=== PATIENT | female | born 1940 | race Caucasian/White ===

== ENCOUNTER 2021-09-11 12:17 | Observation (INO) ==
--- NOTE | 2021-09-11 12:30 | Emergency Department Note ---
History of Present Illness General Chief complaint: Chest Pain Stated complaint: CHEST PAIN Time Seen by Provider: 09/11/21 12:18 History of Present Illness 81-year-old female presents emergency department via EMS for reportedly was at a doctor's office in [place] for urinary tract infection symptoms. Patient was found to have an increased heart rate and was sent by EMS to the hospital for further evaluation. Patient states that she has had intermittent chest pain however does not have any current chest pain she states that she has had an increased heart rate in the past. She presented to their office today due to urinary symptoms of urgency and frequency. She was able to drink water there and was unfortunately unable to provide them a sample prior to them calling EMS due to her heart rate being elevated. She has no current chest pain no shortness of breath no abdominal pain no nausea no vomiting no fever Home Medications Medication Instructions Recorded Confirmed Type amitriptyline 100 mg tablet 200 mg PO DAILY tab 09/07/21 09/11/21 History atorvastatin 40 mg tablet 40 mg PO DAILY 09/07/21 09/11/21 History lisinopril 20 mg tablet 20 mg PO DAILY 09/07/21 09/11/21 History multivitamin (Multiple Vitamins) 1 tab PO DAILY 09/07/21 09/11/21 History oxycodone-acetaminophen 10 mg-325 1 tab PO Q8H PRN 09/07/21 09/11/21 History mg tablet (Percocet) Allergies Allergy/AdvReac Type Severity Reaction Status Date / Time gabapentin AdvReac Unknown Verified 09/11/21 14:33 Past Med/Surg History Medical History (Updated 09/11/21 @ 14:56 by Uzma Malcolm PA-C) Arthritis Dyslipidemia Fibromyalgia Hypertension Ischemic colitis Migraine-cluster headache syndrome Surgical History H/O rectocele repair History of back surgery History of intestinal surgery ischemic bowel surgery, denies hx colostomy S/P hysterectomy Status post knee replacement right Family History Denies family history of Ovarian cancer Breast cancer Colorectal cancer Uterine cancer Social History Smoking Status: Never smoker Hx Alcohol Use: Yes Hx Substance Use: No marital status: Current Living Situation: Family Review of Systems A total of 10 systems reviewed and were otherwise negative Constitutional: no fever Respiratory: no dyspnea Cardiovascular: + chest pain Gastrointestinal: no vomiting Genitourinary (Female): + dysuria, + urinary frequency and + urinary hesitancy Physical Exam Vital Signs Vital Signs - 24 hr 09/11/21 11:54 09/11/21 12:20 09/11/21 12:46 Pulse Rate 147 H Pulse Rate [Apical] Respiratory Rate 20 Respiratory Effort / Characteristics Respiratory Depth Respiratory Pattern Blood Pressure [Right Arm] Blood Pressure Mean [Right Arm] Blood Pressure Position [Right Arm] Pulse Oximetry Oxygen Delivery Method Nasal Cannula Room Air Oxygen Flow Rate 2 98 Sepsis Recent Fever Within 48 Hours No Sepsis New/Unexplained Change in Mental Status No Sepsis Action Taken by Nursing No Action Required 09/11/21 13:17 09/11/21 13:30 Pulse Rate Pulse Rate [Apical] 146 H 73 Respiratory Rate 15 18 Respiratory Effort / Characteristics Non-Labored Spontaneous Non-Labored Spontaneous Respiratory Depth Normal Normal Respiratory Pattern Regular Regular Blood Pressure [Right Arm] 138/111 H 124/77 Blood Pressure Mean [Right Arm] 120 92 Blood Pressure Position [Right Arm] Lying Lying Pulse Oximetry 95 95 Oxygen Delivery Method Room Air Room Air Oxygen Flow Rate Sepsis Recent Fever Within 48 Hours Sepsis New/Unexplained Change in Mental Status Sepsis Action Taken by Nursing VITAL SIGNS - Vital signs and nursing notes were reviewed. GENERAL -81-year-old female appearing her stated age who is in no acute distress . Communicates well with provider and answers questions appropriately. SKIN - Without rashes. HEAD - NC/AT. EYES - PERRL with EOMI bilaterally. Sclera anicteric. Palpebral conjunctiva pink and moist with no injection noted. EARS - No deformities of external structures noted on gross examination bila terally. NOSE - Midline and without cyanosis. No epistaxis or purulent drainage noted. Septum midline without deviation or septal hematoma noted. MOUTH/OROPHARYNX - Without perioral cyanosis. noted. NECK - Neck with FROM. Supple to palpation. No nuchal rigidity. LUNGS - Chest wall symmetric without accessory muscle use, intercostals retractions, or central cyanosis. Normal vesicular breath sounds CTA B/L. No wheezes, rales, or rhonchi appreciated. CARDIAC -tachycardic no murmur, rubs, or gallops appreciated. ABDOMEN - Abdominal contour flat without pulsations or visible masses. BS normoactive all four quadrants. No tenderness, palpable masses, hepatosplenomegaly, or ascites noted. EXTREMITIES - No clubbing or peripheral cyanosis. +5/5 strength noted in UE/LE bilaterally. NEUROLOGIC - Cranial nerves II through XII grossly intact. Sensory intact to light touch throughout. Patellar reflexes +2/4. PSYCH - A&Ox3 and cooperates fully with examiner. Pt is very pleasant and interacts well with examiner. Course Reevaluation(s) Reevaluation #1: Patient was resting in no distress was given 1 dose of IV Cardizem, patient remained in sinus rhythm, urine is pending at the time of disposition, the case was discussed with hospitalist program for admission 143 Administered Medications Discontinued Medications Diltiazem HCl (Diltiazem Hcl 5 Mg/Ml 5 Ml Vial) 20 mg IV NOW STA Stop: 09/11/21 12:58 Last Admin: 09/11/21 13:15 Dose: 20 mg Documented by: [id number] Cosigned by: [id number] Critical Care Time Critical Care Time: Yes Total Critical Care Time: 35 Critical care time is 35 minutes, patient had a cardiac dysrhythmia that required IV antiarrhythmic and reevaluation. Patient remained in stable condition patient had the possibility of a cardiovascular collapse, patient required multiple reevaluations, and review of records, discussion with hospitalist Medical Decision Making Medical Records Attestation: I reviewed the patient's medical records. Home Medications Current Medication List: was personally reviewed by me Laboratory Data Attestation: I reviewed the patient's lab results. Result diagrams: 09/11/21 12:40 09/11/21 14:22 Lab Results 09/11/21 09/11/21 09/11/21 Range/Units 12:40 12:40 12:40 WBC 8.63 (4.8-10.8) K/uL RBC 3.67 L (4.2-5.4) M/uL Hgb 11.4 L (12.0-16.0) g/dL Hct 36.2 L (37-47) % MCV 98.6 (80-100) fL MCH 31.1 (25-34) pg MCHC 31.5 L (32-36) g/dL RDW Std Deviation 54.9 H (36.4-46.3) fL RDW Coeff of Jonah 15.1 H (11.5-14.5) % Plt Count 254 (130-400) K/uL MPV 11.1 H (7.4-10.4) fL Immature Gran % (Auto) 0.2 % Neut % (Auto) 68.8 % Lymph % (Auto) 15.5 % [place] % (Auto) 14.5 % Eos % (Auto) 0.9 % Baso % (Auto) 0.1 % Neut # (Auto) 5.93 (1.4-6.5) K/uL Lymph # (Auto) 1.34 (1.2-3.4) K/uL [place] # (Auto) 1.25 H (0.11-0.59) K/uL Eos # (Auto) 0.08 (0-0.5) K/uL Baso # (Auto) 0.01 (0-0.2) K/uL Immature Gran # (Auto) 0.02 (0.00-0.02) K/uL PT 10.5 (9.0-12.0) Seconds INR 1.0 (0.9-1.1) APTT 28.1 (21.0-31.0) Seconds PTT Ratio 1.1 Sodium 137 (136-145) mmol/L Potassium (3.5-5.1) mmol/L Chloride 106 (98-107) mmol/L Carbon Dioxide 27 (21-32) mmol/L Anion Gap 4.0 (3-11) BUN 16 (7-18) mg/dl Creatinine 0.83 (0.6-1.2) mg/dl Est Cr Clr Drug Dosing Not Reportable Est GFR ( Amer) 76.1 ml/min Est GFR (Non-Af Amer) 65.7 ml/min BUN/Creatinine Ratio 19.8 (10-20) Glucose 93 (70-99) mg/dl Calcium 9.1 (8.5-10.1) mg/dl Total Bilirubin 0.6 (0.2-1) mg/dl AST (15-37) U/L ALT 69 (12-78) Alkaline Phosphatase 94 (45-117) U/L Troponin I < 0.015 (0-0.045) ng/ml Total Protein 7.0 (6.4-8.2) gm/dl Albumin 3.0 L (3.4-5.0) gm/dl Globulin 4.0 (2.5-4.0) gm/dl Albumin/Globulin Ratio 0.8 L (0.9-2) 09/11/21 09/11/21 Range/Units 13:44 14:22 WBC (4.8-10.8) K/uL RBC (4.2-5.4) M/uL Hgb (12.0-16.0) g/dL Hct (37-47) % MCV (80-100) fL MCH (25-34) pg MCHC (32-36) g/dL RDW Std Deviation (36.4-46.3) fL RDW Coeff of Jonah (11.5-14.5) % Plt Count (130-400) K/uL MPV (7.4-10.4) fL Immature Gran % (Auto) % Neut % (Auto) % Lymph % (Auto) % [place] % (Auto) % Eos % (Auto) % Baso % (Auto) % Neut # (Auto) (1.4-6.5) K/uL Lymph # (Auto) (1.2-3.4) K/uL [place] # (Auto) (0.11-0.59) K/uL Eos # (Auto) (0-0.5) K/uL Baso # (Auto) (0-0.2) K/uL Immature Gran # (Auto) (0.00-0.02) K/uL PT (9.0-12.0) Seconds INR (0.9-1.1) APTT (21.0-31.0) Seconds PTT Ratio Sodium (136-145) mmol/L Potassium Cancelled 4.4 (3.5-5.1) mmol/L Chloride (98-107) mmol/L Carbon Dioxide (21-32) mmol/L Anion Gap (3-11) BUN (7-18) mg/dl Creatinine (0.6-1.2) mg/dl Est Cr Clr Drug Dosing Est GFR ( Amer) ml/min Est GFR (Non-Af Amer) ml/min BUN/Creatinine Ratio (10-20) Glucose (70-99) mg/dl Calcium (8.5-10.1) mg/dl Total Bilirubin (0.2-1) mg/dl AST Cancelled 53 H (15-37) U/L ALT (12-78) Alkaline Phosphatase (45-117) U/L Troponin I (0-0.045) ng/ml Total Protein (6.4-8.2) gm/dl Albumin (3.4-5.0) gm/dl Globulin (2.5-4.0) gm/dl Albumin/Globulin Ratio (0.9-2) Imaging Data Radiologist's Impression: Chest X-Ray 09/11/21 12:20 XR chest 1V portable HISTORY: 81 years-old Female Chest Pain . Acute atypical chest pain COMPARISON: None TECHNIQUE: Portable AP view of the chest FINDINGS: The cardiac silhouette is mildly enlarged. Trace pleural effusions. No pneumothorax, or overt pulmonary edema. Mild bibasilar densities. Degenerative changes of the shoulders and spine. Cholecystectomy. IMPRESSION: 1. Cardiomegaly without pulmonary edema. 2. Trace pleural effusions with mild bibasilar densities suggestive of atelectasis. ACT 112: Negative or not required by law. The above report was generated using voice recognition software. It may contain grammatical, syntax or spelling errors. Electronically signed by: Yung Pina M.D. 09/11/2021 1:07 PM ECG Data Attestation: I personally reviewed and interpreted this ECG as follows: Prescription Drug Monitoring Prescription Drug Findings: EKG interpreted by me, SVT versus rapid atrial fibrillation rate of [address] segment elevation or depression normal axis, no prior EKG available to me in MUSE EKG #2 after administration of 20 of IV Cardizem is interpreted by me as sinus rhythm rate of 75 PACs age-indeterminate inferior and age-indeterminate anterior MIs with poor R wave progression the precordium no obvious ST segment elevation and normal axis MDM Narrative Medical decision making differential diagnosis includes palpitations sinus tachycardia, rapid atrial fibrillation, sepsis, urinary tract infection, dehydration Impression & Plan Chest pain, SVT (supraventricular tachycardia) Discharge Plan Visit Data Chief Complaint: Chest Pain Stated Complaint: CHEST PAIN ED Provider: Raghu Villalba Discharge Problem: Chest pain, SVT (supraventricular tachycardia) Patient Disposition: Being Evaluated by Hospitalist Forms Stand Alone Forms: [facility] WO Funding Prescriptions Prescriptions: No Action lisinopril 20 mg tablet 20 mg PO DAILY RF: 0 atorvastatin 40 mg tablet 40 mg PO DAILY RF: 0 oxycodone-acetaminophen [Percocet] 10-325 mg tablet 1 tab PO Q8H PRN (Reason: Pain) RF: 0 multivitamin [Multiple Vitamins] Tablet 1 tab PO DAILY RF: 0 amitriptyline 100 mg tablet 200 mg PO DAILY RF: 0 Referrals Referrals: Laurence Root CRNP [Primary Care Provider] - Discharge Problem: Chest pain Qualifiers: Chest pain type: precordial pain Qualified Code(s): R07.2 - Precordial pain
[2021-09-11 12:54] LABS: Basophils # (auto) 0.01 K/uL (0-0.2); Basophils % (auto) 0.1 %; Eosinophils # (auto) 0.08 K/uL (0-0.5); Eosinophils % (auto) 0.9 %; Hematocrit (blood only) 36.2 % (37-47); Hemoglobin 11.4 g/dL (12.0-16.0); Immature Granulocytes # (auto) 0.02 K/uL (0.00-0.02); Immature Granulocytes % (auto) 0.2 %; Lymphocytes # (auto) 1.34 K/uL (1.2-3.4); Lymphocytes % (auto) 15.5 %; Mean Corpuscular Hemoglobin 31.1 pg (25-34); Mean Corpuscular Hgb Conc 31.5 g/dL (32-36); Mean Corpuscular Volume 98.6 fL (80-100); Mean Platelet Volume 11.1 fL (7.4-10.4); Monocytes # (auto) 1.25 K/uL (0.11-0.59); Monocytes % (auto) 14.5 %; Neutrophils # (auto) 5.93 K/uL (1.4-6.5); Neutrophils % (auto) 68.8 %; Platelet Count 254 K/uL (130-400); RDW Coefficient of Variation 15.1 % (11.5-14.5); RDW Standard Deviation 54.9 fL (36.4-46.3); Red Blood Count 3.67 M/uL (4.2-5.4); White Blood Count 8.63 K/uL (4.8-10.8)
[2021-09-11] MEDS ORDERED: dilTIAZem HCl 5 MG/ML 5 ML VIAL IV STA (12:57)
--- NOTE | 2021-09-11 13:08 | XRay Report ---
XR chest 1V portable HISTORY: 81 years-old Female Chest Pain . Acute atypical chest pain COMPARISON: None TECHNIQUE: Portable AP view of the chest FINDINGS: The cardiac silhouette is mildly enlarged. Trace pleural effusions. No pneumothorax, or overt pulmona ry edema. Mild bibasilar densities. Degenerative changes of the shoulders and spine. Cholecystectomy. IMPRESSION: 1. Cardiomegaly without pulmonary edema. 2. Trace pleural effusions with mild bibasilar densities suggestive of atelectasis. ACT 112: Negative or not required by law. The above report was generated using voice recognition software. It may contain grammatical, syntax o r spelling errors. Electronically signed by: Yung Pina M.D. 09/11/2021 1:07 PM
[2021-09-11 13:11] LABS: Partial Thromboplastin Ratio 1.1; Partial Thromboplastin Time 28.1 Seconds (21.0-31.0); Prothrombin Time 10.5 Seconds (9.0-12.0)
[2021-09-11 13:20] LABS: Alanine Aminotransferase 69 (12-78); BUN Creatinine Ratio 19.8 (10-20); Blood Urea Nitrogen 16 mg/dl (7-18); Calcium 9.1 mg/dl (8.5-10.1); Carbon Dioxide 27 mmol/L (21-32); Chloride 106 mmol/L (98-107); Est GFR (African American) 76.1 ml/min; Est GFR (Non-African American) 65.7 ml/min; Glucose 93 mg/dl (70-99); Sodium 137 mmol/L (136-145)
[2021-09-11 13:23] LABS: Albumin Globulin Ratio 0.8 (0.9-2); Alkaline Phosphatase 94 U/L (45-117); Bilirubin,Total 0.6 mg/dl (0.2-1); Troponin I < 0.015 ng/ml (0-0.045)
[2021-09-11 14:42] LABS: Potassium 4.4 mmol/L (3.5-5.1)
--- NOTE | 2021-09-11 14:51 | History & Physical Report ---
Date of Service September 11, 2021 Assessment & Plan (1) Chest pain: Plan: - Admit to tele for observation for r/o - Trend cardiac biomarkers, initial set was negative - EKG reviewed as above - shows svt with hr in 150s, now back in NSR after 1 dose IV cardizem given in the ER - chest pain free now - Check 2 D echo - If negative enzymes can consider a stress test tomorrow morning. - PT/OT consulted - Consult cardiology (2) SVT (supraventricular tachycardia): Plan: -EKG reviewed, showing heart rate in the one fifties upon arrival to the ER -Likely has been ongoing since Friday when the patient describes palpitation, flutter lightheadedness and dizziness as well as shortness of breath with exertion -Previously had seen a oiler bander in [place], however due to moving here she has not followed up with them since - consult cards - Other management as above (3) Urinary incontinence in female: Plan: - Hx of such - Consider urology consult - will need set up upon discharge (4) Hypertension: Plan: - BP currently stable, continue lisinopril 20 mg daily (5) Dyslipidemia: Plan: - Cont atorvastatin (6) Fibromyalgia: Plan: - Continue pain meds (7) Migraine-cluster headache syndrome: Plan: - Continue amitriptyline HS for migraine noel hx DVT ppx: - teds, scds CODE: Full code Dispo: From home, likely to remain in the hospital x 1-2 days History of Present Illness Chief Complaint: Chest pain, tachycardia Primary Care Provider: EVIE Hawthorne This is an 81 yo F with PMhx of HTN, HLD, ischemic colitis, migraine who presents to from PCP office after being found to have HR in the 150s in the office. She presented there to PCP because of urinary complaints however, not chest complaints. While she was there she developed some chest pain and thus was referred to the ER. Patient has recently moved from [facility] to this area with her . Patient states that her chest discomfort has been going on since Friday night. Her reports that due to her stubbornness she did not present earlier to the ER. Pt admits to palpitations and flutter and at times lightheadedness and dizziness over past 48 hrs. She also admits to being short of breath with minimal activities. Typically is a very active individual. Friday night, placed her on 2 L oxygen which made her feel minimally improved. Patient cannot confirm why she has oxygen at home. Currently she denies any chest pain. Patient ambulates with out any assistive devices however reports she has been told she has needed them in the past. She previously followed with oiler bander in [place] however denies any other past medical history other than high blood pressure and cholesterol for cardiac reasons. She is not on any anticoagulation. She also notes that due to having fibromyalgia and multiple areas of osteoarthritis she takes Percocet 4 times daily. Allergies Allergy/AdvReac Type Severity Reaction Status Date / Time gabapentin AdvReac Unknown Verified 09/11/21 14:33 Home Medications Medication Instructions Recorded Confirmed Type amitriptyline 100 mg tablet 200 mg PO DAILY tab 09/07/21 09/11/21 History atorvastatin 40 mg tablet 40 mg PO DAILY 09/07/21 09/11/21 History lisinopril 20 mg tablet 20 mg PO DAILY 09/07/21 09/11/21 History multivitamin (Multiple Vitamins) 1 tab PO DAILY 09/07/21 09/11/21 History oxycodone-acetaminophen 10 mg-325 1 tab PO Q8H PRN 09/07/21 09/11/21 History mg tablet (Percocet) Past Med/Surg History Medical History (Updated 09/11/21 @ 16:52 by Uzma Malcolm PA-C) Arthritis Dyslipidemia Fibromyalgia Hypertension Ischemic colitis Migraine-cluster headache syndrome Surgical History H/O rectocele repair History of back surgery History of intestinal surgery ischemic bowel surgery, denies hx colostomy S/P hysterectomy Status post knee replacement right Family History Denies family history of Ovarian cancer Breast cancer Colorectal cancer Uterine cancer Social History Smoking Status: Never smoker Hx Alcohol Use: Yes Hx Substance Use: No marital status: Current Living Situation: Family Review of Systems Review of Systems: Constitutional: No fever, sweats or chills Eyes: No diplopia, no worsening or blurred vision ENT: normal hearing, no trouble swallowing Respiratory: No cough, sputum, dyspnea at rest, + GARCIA Cardiovascular: As per HPI, currently no chest pain, tightness or palpitations Abdomen: No pain, nausea, vomiting, diarrhea or constipation Musculoskeletal: No joint pain, calf pain, swelling Neurologic: No weakness, numbness/tingling, + chronic balance problems, does not use assistive device Psychiatric: No anxiety or depression Skin: No rash or itch Physical Exam Physical Exam: General: awake, alert, no apparent distress Head: Normocephalic, atraumatic ENT: PERRL, EOMI, no pharyngeal exudate, mucous membranes moist Chest: Clear to auscultation, on room air, no adventitious breath sounds Cardiac: Regular rate and rhythm, few PVCs, no murmur, no JVD, normal peripheral pulses, good capillary refill Abdominal: NABS x 4 quadrants, soft, nondistended, nontender to palpation, no rebound or guarding Extremities: Normal inspection, no peripheral edema or erythema, calfs nontender to palpation Psych: Normal mood and affect Neuro: AAO x 3, strength intact bilaterally and rated 5/5, no motor deficits, speech is clear, no peripheral sensory deficits Results & Data Results & Data ([facility]) Vital Signs (Past 12 Hours) Vital Signs Pulse Pulse Resp BP Pulse Ox 09/11/21 13:30 73 18 124/77 95 09/11/21 13:17 146 H 15 138/111 H 95 09/11/21 12:20 147 H 20 Laboratory Results 09/11/21 09/11/21 09/11/21 14:22 13:44 12:40 WBC RBC Hgb Hct MCV MCH MCHC RDW Std Deviation RDW Coeff of Jonah Plt Count MPV Immature Gran % (Auto) Neut % (Auto) Lymph % (Auto) [place] % (Auto) Eos % (Auto) Baso % (Auto) Neut # (Auto) Lymph # (Auto) [place] # (Auto) Eos # (Auto) Baso # (Auto) Immature Gran # (Auto) PT INR APTT PTT Ratio Sodium 137 Potassium 4.4 Cancelled Chloride 106 Carbon Dioxide 27 Anion Gap 4.0 BUN 16 Creatinine 0.83 Est Cr Clr Drug Dosing Not Reportable Est GFR ( Amer) 76.1 Est GFR (Non-Af Amer) 65.7 BUN/Creatinine Ratio 19.8 Glucose 93 Calcium 9.1 Total Bilirubin 0.6 AST 53 H Cancelled ALT 69 Alkaline Phosphatase 94 Troponin I < 0.015 Total Protein 7.0 Albumin 3.0 L Globulin 4.0 Albumin/Globulin Ratio 0.8 L 09/11/21 09/11/21 12:40 12:40 WBC 8.63 RBC 3.67 L Hgb 11.4 L Hct 36.2 L MCV 98.6 MCH 31.1 MCHC 31.5 L RDW Std Deviation 54.9 H RDW Coeff of Jonah 15.1 H Plt Count 254 MPV 11.1 H Immature Gran % (Auto) 0.2 Neut % (Auto) 68.8 Lymph % (Auto) 15.5 [place] % (Auto) 14.5 Eos % (Auto) 0.9 Baso % (Auto) 0.1 Neut # (Auto) 5.93 Lymph # (Auto) 1.34 [place] # (Auto) 1.25 H Eos # (Auto) 0.08 Baso # (Auto) 0.01 Immature Gran # (Auto) 0.02 PT 10.5 INR 1.0 APTT 28.1 PTT Ratio 1.1 Sodium Potassium Chloride Carbon Dioxide Anion Gap BUN Creatinine Est Cr Clr Drug Dosing Est GFR ( Amer) Est GFR (Non-Af Amer) BUN/Creatinine Ratio Glucose Calcium Total Bilirubin AST ALT Alkaline Phosphatase Troponin I Total Protein Albumin Globulin Albumin/Globulin Ratio Diagnostic Findings Chest X-Ray 09/11/21 12:20 XR chest 1V portable HISTORY: 81 years-old Female Chest Pain . Acute atypical chest pain COMPARISON: None TECHNIQUE: Portable AP view of the chest FINDINGS: The cardiac silhouette is mildly enlarged. Trace pleural effusions. No pneumothorax, or overt pulmonary edema. Mild bibasilar densities. Degenerative changes of the shoulders and spine. Cholecystectomy. IMPRESSION: 1. Cardiomegaly without pulmonary edema. 2. Trace pleural effusions with mild bibasilar densities suggestive of atelectasis. ACT 112: Negative or not required by law. The above report was generated using voice recognition software. It may contain grammatical, syntax or spelling errors. Electronically signed by: Yung Pina M.D. 09/11/2021 1:07 PM ECG Rate (beats per minute): 150 Rhythm: SVT Additional Comments: 11-SEP-2021 12:30:50 [facility]-EDSTAT ROUTINE RETRIEVAL Supraventricular tachycardia Minimal voltage criteria for LVH, may be normal variant Inferior infarct , age undetermined Anterior infarct , age undetermined Abnormal ECG No previous ECGs available 25mm/s 10mm/mV 150Hz 9.0.9 12SL 241 ALIYAH: 3 Unconfirmed Vent. rate 150 BPM TX interval * ms QRS duration 106 ms QT/QTc 298/470 ms Code Status & VTE Plan Code Status Full code- discussed with pt and her at bedside VTE Prophylaxis Plan VTE Prophylaxis will be ordered: Yes Supervising Physician Co-Signing Physician Notes 81-year-old lady with PMH of HTN, HLD, ischemic colitis, migraine who recently moved from [place] presented to our ED 09/11/2021 after being sent from her PCPs office for concerns of her heart rate in the 150s. She was in her PCP office per her urinary signs and symptoms with dysuria/frequency/pain/burning with passing urine for few months. Patient also reports intermittent chest pain that has been going on for a while but has become worsened since last day especially with activity. Initial troponin has been negative, admitting EKG revealed SVT with heart rate in 150s. Trend troponin, echo, PT/OT, consult cardiology, telemetry monitoring, resume home meds as appropriate. Antibiotics for UTI. Of note, patient does not smoke tobacco/drink alcohol/use recreational drugs. Patient does not have any history of [place]/stroke/patient is vaccinated against Covid x2. No Upon examination: GENERAL: Alert and oriented x3. NAD, on RA. HEENT: No pallor, no icterus. Pupils equal, round and reactive to light. Oral mucosa moist. NECK: No JVD, no neck masses. HEART: S1 and S2 heard. Regular rate and rhythm. No murmur, no gallop. RESPIRATORY SYSTEM: Normal AP diameter. No accessory muscle use. No wheezing, no crackles. ABDOMEN: Soft, bowel sounds present, nontender, no distention. CENTRAL NERVOUS SYSTEM: No facial droop. Speech is clear. Obeys simple commands. Moves extremities. EXTREMITIES: No edema, no erythema seen. I have seen and examined the patient and have discussed the case with the provider above. I agree with the assessment and plan as stated. (1) Chest pain Chest pain type: precordial pain Qualified Code(s): R07.2 - Precordial pain
[2021-09-11 17:44] LABS: Appearance Urine Turbid (Clear); Bacteria Urine Automated 2+ (Negative); Bilirubin Urine Negative (Negative); Blood Urine 1+ (Negative); Color Urine Yellow; Glucose Urine UA Negative (Negative); Ketones Urine Negative (Negative); Leukocyte Esterase Urine 3+ (Negative); Nitrite Urine Negative (Negative); Protein Urine Trace (Negative); RBC Urine Automated 0-4 /hpf (0-4); Specific Gravity Urine 1.009 (1.000-1.030); Urobilinogen Urine Negative (Negative); WBC Urine Automated >30 /hpf (0-5)
[2021-09-11] MEDS ORDERED: ONDANSETRON INJ 2 MG/ML 2 ML VIAL IV PRN (18:00)
[2021-09-11] MEDS ORDERED: ACETAMINOPHEN 325 MG TAB PO PRN (18:00)
[2021-09-11] MEDS: CEFDINIR 300 MG CAP PO SCH (20:56)
[2021-09-11] MEDS: oxyCODONE/ACETAMINOPHEN 10-325 TAB PO PRN (20:57)
[2021-09-11] MEDS: HEPARIN SOD 5,000 UNIT/0.5 ML VIAL SQ SCH (20:57)
[2021-09-11] MEDS ORDERED: AMITRIPTYLINE HCL 100 MG TAB PO SCH (21:00)
[2021-09-12 05:00] LABS: Hematocrit (blood only) 33.2 % (37-47); Hemoglobin 10.3 g/dL (12.0-16.0); Mean Corpuscular Hemoglobin 30.7 pg (25-34); Mean Corpuscular Volume 98.8 fL (80-100); Mean Platelet Volume 10.3 fL (7.4-10.4); Platelet Count 249 K/uL (130-400); RDW Coefficient of Variation 14.8 % (11.5-14.5); RDW Standard Deviation 53.7 fL (36.4-46.3); Red Blood Count 3.36 M/uL (4.2-5.4); White Blood Count 5.13 K/uL (4.8-10.8)
[2021-09-12 05:33] LABS: Alanine Aminotransferase 47 (12-78); Albumin Globulin Ratio 0.8 (0.9-2); Albumin Level 2.6 gm/dl (3.4-5.0); Alkaline Phosphatase 79 U/L (45-117); Aspartate Aminotransferase 29 U/L (15-37); BUN Creatinine Ratio 21.1 (10-20); Bilirubin,Total 0.4 mg/dl (0.2-1); Blood Urea Nitrogen 15 mg/dl (7-18); Calcium 8.8 mg/dl (8.5-10.1); Carbon Dioxide 26 mmol/L (21-32); Chloride 107 mmol/L (98-107); Chol HDL Ratio 2; Cholesterol 98 mg/dl (0-200); Est GFR (African American) 91.9 ml/min; Est GFR (Non-African American) 79.3 ml/min; Globulin 3.2 gm/dl (2.5-4.0); Glucose 64 mg/dl (70-99); HDL Cholesterol 56 mg/dl; LDL Cholesterol Calculated 25 mg/dl; Potassium 3.5 mmol/L (3.5-5.1); Sodium 140 mmol/L (136-145); Total Protein 5.8 gm/dl (6.4-8.2); Triglycerides 86 mg/dl (0-150); Troponin I < 0.015 ng/ml (0-0.045); VLDL Cholesterol 17 mg/dl
[2021-09-12 07:56] LABS: Estimated Average Glucose 108 mg/dl; Hemoglobin A1C 5.4 % (4.5-5.6)
[2021-09-12] MEDS: CEFDINIR 300 MG CAP PO SCH (08:20)
[2021-09-12] MEDS: HEPARIN SOD 5,000 UNIT/0.5 ML VIAL SQ SCH (08:21)
[2021-09-12] MEDS ORDERED: lisinopril 20 MG TAB PO SCH (09:00)
[2021-09-12] MEDS ORDERED: ATORVASTATIN 40 MG TAB PO SCH (09:00)
[2021-09-12] MEDS ORDERED: MULTIVITAMIN TAB PO SCH (09:00)
--- NOTE | 2021-09-12 11:24 | Cardiology Consultation ---
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 She presents now with sustained tachypalpitations of at least 1 days duration and was found on presentation to be in a supraventricular tachycardia rate 150 bpm. Rhythm converted to sinus rhythm with IV diltiazem single dose Patient is not aware of any past tachyarrhythmias. Rhythm this morning sinus with atrial ectopic beats, atrial bigeminy Echocardiogram with preserved LV systolic function, aortic sclerosis and mild to moderate mitral tricuspid insufficiency Recommendations: Would initiate antiarrhythmic and antihypertensive therapy with diltiazem ER 120 mg/day in addition to lisinopril, supplement potassium. No evidence of ischemic heart disease or acute coronary syndrome with chest pressure pain likely secondary to tachyarrhythmia. Stress test not indicated at this time Follow-up with cardiology 3 to 4 weeks Underlying medical issues as per hospitalist service, chronic hypoxia, anemia, UTI. If felt to be stable no indications for further hospitalization from cardiac standpoint History of Present Illness Reason for Consultation: Paroxysmal supraventricular tachycardia Requesting Physician: Dr Miller Attending Physician: Jairo Miller MD History of Present Illness Patient is an 81-year-old female who recently relocated to the [facility] from [facility]. Her history per patient description is notable for 1. Hypertension 2. Fibromyalgia 3. Hyperlipidemia on therapy 4. Chronic hypoxia Patient presented this admission noting tachypalpitations of several days duration with associated chest pressure sensation. No dizziness lightheadedness syncope or near syncope. No fevers chills or unexplained infections. No observed bleeding difficulties. Appetite has been only fair and she notes 20 to 30 pound gradual weight loss. Has been observed to be hypoxic in the past and was prescribed home oxygen No recent records. Patient with hearing loss but able to answer most questions but within limited detail Allergies Allergy/AdvReac Type Severity Reaction Status Date / Time gabapentin AdvReac Unknown Verified 09/11/21 14:33 Home Medications Medication Instructions Recorded Confirmed Type amitriptyline 100 mg tablet 200 mg PO DAILY tab 09/07/21 09/11/21 History atorvastatin 40 mg tablet 40 mg PO DAILY 09/07/21 09/11/21 History lisinopril 20 mg tablet 20 mg PO DAILY 09/07/21 09/11/21 History multivitamin (Multiple Vitamins) 1 tab PO DAILY 09/07/21 09/11/21 History oxycodone-acetaminophen 10 mg-325 1 tab PO Q8H PRN 09/07/21 09/11/21 History mg tablet (Percocet) Patient History Medical History Arthritis Dyslipidemia Fibromyalgia Hypertension Ischemic colitis Migraine-cluster headache syndrome Surgical History H/O rectocele repair History of back surgery History of intestinal surgery ischemic bowel surgery, denies hx colostomy S/P hysterectomy Status post knee replacement right Family History Denies family history of Ovarian cancer Breast cancer Colorectal cancer Uterine cancer Social History Smoking Status: Never smoker Hx Alcohol Use: Yes Hx Substance Use: No marital status: Current Living Situation: Family Review of Systems Review of Systems: All systems reviewed & are unremarkable except as noted in HPI & below Physical Exam Constitutional: + thin; no acute distress Eyes: PERRL, conjunctivae normal, anicteric sclerae ENMT: external ear and nose normal, oropharynx normal Neck: trachea midline, no thyromegaly Respiratory: normal respiratory effort, lungs clear to auscultation Cardiovascular: Rate/Rhythm: regular rate and regular rhythm Heart Sounds: normal S1, normal S2 and + murmur (Grade 2 / 6 systolic murmur); no gallop Palpation: normal PMI Vessels: normal carotid upstroke and radial pulses present; no JVD and no carotid bruit Extremities: no edema Gastrointestinal (Abdomen): normal bowel sounds, soft, nontender, no hepatosplenomegaly Musculoskeletal: no cyanosis or clubbing, extremities motor strength 5/5 Extremities: + clubbing Skin: no rashes, warm and dry Neurologic: PERRL, EOMI, accommodation nl, no face palsy, no dysarthria Psychiatric: A+Ox3, euthymic affect Results & Data ([facility]) Vital Signs (Past 12 Hours) Vital Signs Temp Pulse Resp BP Pulse Ox 09/12/21 07:25 36.7 C 84 18 154/91 H 94 09/12/21 04:00 79 18 151/90 H 94 09/11/21 23:59 74 16 120/77 99 Laboratory Results Laboratory Results - last 24 hr 09/11/21 09/11/21 09/11/21 12:40 12:40 12:40 WBC 8.63 RBC 3.67 L Hgb 11.4 L Hct 36.2 L MCV 98.6 MCH 31.1 MCHC 31.5 L RDW Std Deviation 54.9 H RDW Coeff of Jonah 15.1 H Plt Count 254 MPV 11.1 H Immature Gran % (Auto) 0.2 Neut % (Auto) 68.8 Lymph % (Auto) 15.5 [place] % (Auto) 14.5 Eos % (Auto) 0.9 Baso % (Auto) 0.1 Neut # (Auto) 5.93 Lymph # (Auto) 1.34 [place] # (Auto) 1.25 H Eos # (Auto) 0.08 Baso # (Auto) 0.01 Immature Gran # (Auto) 0.02 PT 10.5 INR 1.0 APTT 28.1 PTT Ratio 1.1 Sodium 137 Potassium Chloride 106 Carbon Dioxide 27 Anion Gap 4.0 BUN 16 Creatinine 0.83 Est Cr Clr Drug Dosing Not Reportable Est GFR ( Amer) 76.1 Est GFR (Non-Af Amer) 65.7 BUN/Creatinine Ratio 19.8 Glucose 93 Estimat Average Glucose Hemoglobin A1c Calcium 9.1 Total Bilirubin 0.6 AST ALT 69 Alkaline Phosphatase 94 Troponin I < 0.015 Total Protein 7.0 Albumin 3.0 L Globulin 4.0 Albumin/Globulin Ratio 0.8 L Triglycerides Cholesterol LDL Cholesterol, Calc VLDL Cholesterol, Calc HDL Cholesterol Cholesterol/HDL Ratio Urine Color Urine Appearance Urine pH Ur Specific [place] Urine Protein Urine Glucose (UA) Urine Ketones Urine Blood Urine Nitrite Urine Bilirubin Urine Urobilinogen Ur Leukocyte Esterase Urine WBC (Auto) Urine RBC (Auto) U Hyaline Cast (Auto) U Epithel Cells (Auto) Urine Bacteria (Auto) SARS-CoV-2, RNA, NAAT 09/11/21 09/11/21 09/11/21 13:44 14:22 14:40 WBC RBC Hgb Hct MCV MCH MCHC RDW Std Deviation RDW Coeff of Jonah Plt Count MPV Immature Gran % (Auto) Neut % (Auto) Lymph % (Auto) [place] % (Auto) Eos % (Auto) Baso % (Auto) Neut # (Auto) Lymph # (Auto) [place] # (Auto) Eos # (Auto) Baso # (Auto) Immature Gran # (Auto) PT INR APTT PTT Ratio Sodium Potassium Cancelled 4.4 Chloride Carbon Dioxide Anion Gap BUN Creatinine Est Cr Clr Drug Dosing Est GFR ( Amer) Est GFR (Non-Af Amer) BUN/Creatinine Ratio Glucose Estimat Average Glucose Hemoglobin A1c Calcium Total Bilirubin AST Cancelled 53 H ALT Alkaline Phosphatase Troponin I Total Protein Albumin Globulin Albumin/Globulin Ratio Triglycerides Cholesterol LDL Cholesterol, Calc VLDL Cholesterol, Calc HDL Cholesterol Cholesterol/HDL Ratio Urine Color Urine Appearance Urine pH Ur Specific [place] Urine Protein Urine Glucose (UA) Urine Ketones Urine Blood Urine Nitrite Urine Bilirubin Urine Urobilinogen Ur Leukocyte Esterase Urine WBC (Auto) Urine RBC (Auto) U Hyaline Cast (Auto) U Epithel Cells (Auto) Urine Bacteria (Auto) SARS-CoV-2, RNA, NAAT NEGATIVE 09/11/21 09/11/21 09/12/21 17:30 20:29 04:47 WBC RBC Hgb Hct MCV MCH MCHC RDW Std Deviation RDW Coeff of Jonah Plt Count MPV Immature Gran % (Auto) Neut % (Auto) Lymph % (Auto) [place] % (Auto) Eos % (Auto) Baso % (Auto) Neut # (Auto) Lymph # (Auto) [place] # (Auto) Eos # (Auto) Baso # (Auto) Immature Gran # (Auto) PT INR APTT PTT Ratio Sodium 140 Potassium 3.5 D Chloride 107 Carbon Dioxide 26 Anion Gap 7.0 BUN 15 Creatinine 0.71 Est Cr Clr Drug Dosing Not Reportable Est GFR ( Amer) 91.9 Est GFR (Non-Af Amer) 79.3 BUN/Creatinine Ratio 21.1 H Glucose 64 L Estimat Average Glucose Hemoglobin A1c Calcium 8.8 Total Bilirubin 0.4 AST 29 ALT 47 Alkaline Phosphatase 79 Troponin I < 0.015 < 0.015 Total Protein 5.8 L Albumin 2.6 L Globulin 3.2 Albumin/Globulin Ratio 0.8 L Triglycerides 86 Cholesterol 98 LDL Cholesterol, Calc 25 VLDL Cholesterol, Calc 17 HDL Cholesterol 56 Cholesterol/HDL Ratio 2 Urine Color Yellow Urine Appearance Turbid A Urine pH 6.0 Ur Specific [place] 1.009 Urine Protein Trace H Urine Glucose (UA) Negative Urine Ketones Negative Urine Blood 1+ H Urine Nitrite Negative Urine Bilirubin Negative Urine Urobilinogen Negative Ur Leukocyte Esterase 3+ H Urine WBC (Auto) >30 H Urine RBC (Auto) 0-4 U Hyaline Cast (Auto) 1-5 U Epithel Cells (Auto) 5-10 H Urine Bacteria (Auto) 2+ H SARS-CoV-2, RNA, NAAT 09/12/21 09/12/21 04:47 04:47 WBC 5.13 RBC 3.36 L Hgb 10.3 L Hct 33.2 L MCV 98.8 MCH 30.7 MCHC 31.0 L RDW Std Deviation 53.7 H RDW Coeff of Jonah 14.8 H Plt Count 249 MPV 10.3 Immature Gran % (Auto) Neut % (Auto) Lymph % (Auto) [place] % (Auto) Eos % (Auto) Baso % (Auto) Neut # (Auto) Lymph # (Auto) [place] # (Auto) Eos # (Auto) Baso # (Auto) Immature Gran # (Auto) PT INR APTT PTT Ratio Sodium Potassium Chloride Carbon Dioxide Anion Gap BUN Creatinine Est Cr Clr Drug Dosing Est GFR ( Amer) Est GFR (Non-Af Amer) BUN/Creatinine Ratio Glucose Estimat Average Glucose 108 Hemoglobin A1c 5.4 Calcium Total Bilirubin AST ALT Alkaline Phosphatase Troponin I Total Protein Albumin Globulin Albumin/Globulin Ratio Triglycerides Cholesterol LDL Cholesterol, Calc VLDL Cholesterol, Calc HDL Cholesterol Cholesterol/HDL Ratio Urine Color Urine Appearance Urine pH Ur Specific [place] Urine Protein Urine Glucose (UA) Urine Ketones Urine Blood Urine Nitrite Urine Bilirubin Urine Urobilinogen Ur Leukocyte Esterase Urine WBC (Auto) Urine RBC (Auto) U Hyaline Cast (Auto) U Epithel Cells (Auto) Urine Bacteria (Auto) SARS-CoV-2, RNA, NAAT Medications Administered Current Medications Acetaminophen (Acetaminophen 325 Mg Tab) 650 mg PO Q4H PRN PRN Reason: Moderate Pain Stop: 10/11/21 17:59 Amitriptyline HCl (Amitriptyline Hcl 100 Mg Tab) 200 mg PO HS [facility] Stop: 10/11/21 20:59 Last Admin: 09/11/21 20:56 Dose: 200 mg Documented by: Atorvastatin Calcium (Atorvastatin 40 Mg Tab) 40 mg PO DAILY [facility] Stop: 10/12/21 08:59 Last Admin: 09/12/21 08:19 Dose: 40 mg Documented by: Cefdinir (Cefdinir 300 Mg Cap) 300 mg PO Q12H [facility] Stop: 09/18/21 20:59 Last Admin: 09/12/21 08:20 Dose: 300 mg Documented by: Diltiazem HCl (Diltiazem Er 120 Mg Capcr) 120 mg PO QAM [facility] Stop: 10/12/21 11:29 Heparin Sodium (Porcine) (Heparin Sod 5,000 Unit/0.5 Ml Vial) 5,000 units SQ Q12 [facility] Stop: 10/11/21 20:59 Last Admin: 09/12/21 08:21 Dose: 5,000 units Documented by: Lisinopril (Lisinopril 20 Mg Tab) 20 mg PO DAILY [facility] Stop: 10/12/21 08:59 Last Admin: 09/12/21 08:20 Dose: 20 mg Documented by: Multivitamins (Multivitamin Tab) 1 tab PO QAM [facility] Stop: 10/12/21 08:59 Last Admin: 09/12/21 08:19 Dose: 1 tab Documented by: Ondansetron HCl (Ondansetron Inj 2 Mg/Ml 2 Ml Vial) 4 mg IV Q4H PRN PRN Reason: Nausea And Vomiting Stop: 10/11/21 17:59 Oxycodone/Acetaminophen (Oxycodone/Acetaminophen 10-325 Tab) 1 tab PO Q8H PRN PRN Reason: Pain Stop: 09/25/21 16:41 Last Admin: 09/11/21 20:57 Dose: 1 tab Documented by:
[2021-09-12] MEDS ORDERED: dilTIAZem ER 120 MG CAPCR PO SCH (11:30)
[2021-09-12] MEDS ORDERED: POTASSIUM CHLORIDE CRTAB 20 MEQ TABCR PO ONE (14:28)
[2021-09-12] MEDS: oxyCODONE/ACETAMINOPHEN 10-325 TAB PO PRN (15:46)
--- NOTE | 2021-09-12 16:40 | Hospitalist Progress Note ---
Date of Service September 12, 2021 Assessment & Plan (1) Chest pain: Plan: secondary to SVT - Trend cardiac biomarkers: troponins negative - EKG reviewed as above - shows SVT with hr in 150s, now back in NSR after 1 dose IV cardizem given in the ER - chest pain free now - Echo: normal left ventricular wall motion, EF 60-65%, Gr 1 diastolic dysfunction - Dr. Fitzgerald evaluated the patient recommend Diltiazem 120mg po daily, Potassium 10meqs daily ff up as outpatient - repeat K on ff up with PCP in 1 week (2) SVT (supraventricular tachycardia): Plan: -EKG reviewed, showing heart rate in the one fifties upon arrival to the ER -Likely has been ongoing since Friday when the patient describes palpitation, flutter lightheadedness and dizziness as well as shortness of breath with exertion management per above (3) Urinary incontinence in female: Plan: UTI- gram negative bacilli given Cefdinir 100mg BID, continue at home to complete 5 day course ff up final Urine culture report (4) Hypertension: Plan: - BP currently stable, continue lisinopril 20 mg daily (5) Dyslipidemia: Plan: - Cont atorvastatin (6) Fibromyalgia: Plan: - Continue pain meds (7) Migraine-cluster headache syndrome: Plan: - Continue amitriptyline HS for migraine noel hx DVT ppx: - caprice, scds CODE: Full code Dispo: d/c home ff up with PCP in 1 week plan of care discussed with patient and her in detail and at length all questions answered they are understanding, agreeable, comfortable with the plan of care Admission and Anticipated Discharge Date Admission Date: September 11, 2021 Subjective ff up for SVT, UTI, etc seen resting in bed, comfortable, sitting up states she feels much better overall no chest pain, dyspnea, palpitations, dizziness has mild dysuria, no back/flank pain, fever/chills, nausea/vomiting no other symptoms states she is ready and would like to be discharged today Review of Systems Review of Systems: all noted and negative except for above Physical Exam Physical Exam: General- oriented x 3, not in distress, speaks in sentences with no effort or accessory muscle use Head- atraumatic Eyes- PERRL, EOMI, anicteric ENT- oropharynx clear Neck- supple, no JVD, no adenopathy, no thyromegaly; carotids +2/2, no bruits appreciated Lungs- clear to auscultation bilaterally, no rales/wheezes Heart- normal rate, regular rhythm; no murmur, no gallop, no rub appreciated Abdomen- normal bowel sounds, nondistended, soft, nontender, no masses or hepatosplenomegaly no CVA tenderness Extremities- no pretibial edema, no calf tenderness; peripheral pulses intact Neuro- alert, oriented x 3; CN 2-12 grossly intact; motor 5/5 bilaterally;sensation 100% on all extremities; no other gross focal neurologic deficits Skin- warm & dry Results & Data Results & Data ([facility]) Vital Signs (Past 12 Hours) Vital Signs Temp Pulse Resp BP Pulse Ox Pulse Ox 09/12/21 12:30 86 14 126/71 95 09/12/21 11:34 93 09/12/21 07:25 36.7 C 84 18 154/91 H 94 all noted and reviewed including below (1) Chest pain Chest pain type: precordial pain Qualified Code(s): R07.2 - Precordial pain
--- NOTE | 2021-09-12 16:45 | Discharge Summary ---
Date of Service September 12, 2021 Admission HPI Per Admitting Provider This is an 81 yo F with PMhx of HTN, HLD, ischemic colitis, migraine who presents to from PCP office after being found to have HR in the 150s in the office. She presented there to PCP because of urinary complaints however, not chest complaints. While she was there she developed some chest pain and thus was referred to the ER. Patient has recently moved from [facility] to this area with her . Patient states that her chest discomfort has been going on since Friday. Her reports that due to her stubbornness she did not present earlier to the ER. Pt admits to palpitations and flutter and at times lightheadedness and dizziness over past 48 hrs. She also admits to being short of breath with minimal activities. Typically is a very active individual. Friday, placed her on 2 L oxygen which made her feel minimally improved. Patient cannot confirm why she has oxygen at home. Currently she denies any chest pain. Patient ambulates with out any assistive devices however reports she has been told she has needed them in the past. 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 She is not on any anticoagulation. She also notes that due to having fibromyalgia and multiple areas of osteoarthritis she takes Percocet 4 times daily. Admission Exam (Per Admitting) Constitutional General: awake, alert, no apparent distress Head: Normocephalic, atraumatic ENT: PERRL, EOMI, no pharyngeal exudate, mucous membranes moist Chest: Clear to auscultation, on room air, no adventitious breath sounds Cardiac: Regular rate and rhythm, few PVCs, no murmur, no JVD, normal peripheral pulses, good capillary refill Abdominal: NABS x 4 quadrants, soft, nondistended, nontender to palpation, no rebound or guarding Extremities: Normal inspection, no peripheral edema or erythema, calfs nontender to palpation Psych: Normal mood and affect Neuro: AAO x 3, strength intact bilaterally and rated 5/5, no motor deficits, speech is clear, no peripheral sensory deficits Discharge Data Consultations 09/11/21 14:32 ED Decision to Admit Stat 09/11/21 16:51 Consult Cardiology Routine Procedures Performed XR chest 1V portable HISTORY: 81 years-old Female Chest Pain . Acute atypical chest pain COMPARISON: None TECHNIQUE: Portable AP view of the chest FINDINGS: The cardiac silhouette is mildly enlarged. Trace pleural effusions. No pneumothorax, or overt pulmonary edema. Mild bibasilar densities. Degenerative changes of the shoulders and spine. Cholecystectomy. IMPRESSION: 1. Cardiomegaly without pulmonary edema. 2. Trace pleural effusions with mild bibasilar densities suggestive of atelectasis. ACT 112: Negative or not required by law. Hospital Course (1) Chest pain: (2) SVT (supraventricular tachycardia): (1) Chest pain: Plan: secondary to SVT - Trend cardiac biomarkers: troponins negative - EKG reviewed as above - shows SVT with hr in 150s, now back in NSR after 1 dose IV cardizem given in the ER - chest pain free now - Echo: normal left ventricular wall motion, EF 60-65%, Gr 1 diastolic dysfunction - Dr. Fitzgerald evaluated the patient recommend Diltiazem 120mg po daily, Potassium 10meqs daily ff up as outpatient - repeat K on ff up with PCP in 1 week (2) SVT (supraventricular tachycardia): Plan: -EKG reviewed, showing heart rate in the one fifties upon arrival to the ER -Likely has been ongoing since Friday when the patient describes palpitation, flutter lightheadedness and dizziness as well as shortness of breath with exertion management per above (3) Urinary incontinence in female: Plan: UTI- gram negative bacilli given Cefdinir 100mg BID, continue at home to complete 5 day course ff up final Urine culture report (4) Hypertension: Plan: - BP currently stable, continue lisinopril 20 mg daily (5) Dyslipidemia: Plan: - Cont atorvastatin (6) Fibromyalgia: Plan: - Continue pain meds (7) Migraine-cluster headache syndrome: Plan: - Continue amitriptyline HS for migraine noel hx DVT ppx: - teds, scds CODE: Full code Dispo: d/c home ff up with PCP in 1 week plan of care discussed with patient and her in detail and at length all questions answered they are understanding, agreeable, comfortable with the plan of care
--- NOTE | 2021-09-13 06:31 | Electrocardiogram Report ---
Test Reason : Blood Pressure : / mmHG Vent. Rate : 150 BPM Atrial Rate : 026 BPM P-R Int : 000 ms QRS Dur : 106 ms QT Int : 298 ms P-R-T Axes : 000 -20 -17 degrees QTc Int : 470 ms Supraventricular tachycardia Minimal voltage criteria for LVH, may be normal variant Inferior infarct , age undetermined Anterior infarct , age undetermined Abnormal ECG No previous ECGs available Confirmed by Rafael Velasco ([id number]) on 09/13/2021 6:31:30 AM Referred By: Confirmed By:Rafael Velasco
--- NOTE | 2021-09-13 06:36 | Electrocardiogram Report ---
Test Reason : Blood Pressure : / mmHG Vent. Rate : 075 BPM Atrial Rate : 075 BPM P-R Int : 180 ms QRS Dur : 088 ms QT Int : 384 ms P-R-T Axes : 065 -14 006 degrees QTc Int : 428 ms Poor data quality, interpretation may be adversely affected Sinus rhythm with Premature atrial complexes in a pattern of bigeminy Inferior infarct (cited on or before 11-SEP-2021) Anterior infarct (cited on or before 11-SEP-2021) Nonspecific T wave abnormality Abnormal ECG When compared with ECG of 11-SEP-2021 12:30, Sinus rhythm has replaced Supraventricular tachycardia Vent. rate has decreased BY 75 BPM Confirmed by Rafael Velasco ([id number]) on 09/13/2021 6:36:25 AM Referred By: Laurence Root Confirmed By:Rafael Velasco
[2021-09-13] MEDS ORDERED: POTASSIUM CHLORIDE 10 MEQ TABCR PO SCH (09:00)
== END 2021-09-12 17:39 | disposition home or self-care (01) ==
LOC: ED 12:17 → EDINP 12:17 → SUATTDRO 14:49 → EDINP 17:42